=== PATIENT | female | born 1960 | race African-American/Black ===

== ENCOUNTER 2017-02-15 13:44 | Emergency (ER) | payer OTHER ==
[~2017-02-15 13:44] MED LIST: ALLERCLEAR10 MG PO; AMOXICILLIN PO; BACTRIM DS TABL1 TA1 PO; BENZONATATE PO; CELEXA PO; CLARITIN10 MG PO; COL PO; DARVOCET-N 1001 TAB PO; DEPAKOTE PO; DEPRESSION MED; DICYCLOMINE HCL20 MG PO; DOXYCYCLINE HY100 M3 PO; FIORICET 50-321 EACH PO; FIORICET W/CODE1 CAP PO; FLAGYL PO; FLEXERIL PO; FLEXERIL10 MG PO; FLONASE16 GM; IBUPROFEN800 MG; KEFLEX PO; KEFLEX500 MG PO; KETOPROFEN PO; LEVAQUIN PO; LISINOPRIL PO; LISINOPRIL-HCTZ1 T15 PO; LISINOPRIL-HCTZ1 T18 PO; LITHIUM PO; LORTAB 5/500 TA1 TA1 PO; MACROBID100 MG PO; MEDROL PO; METRONIDAZOLE PO; MICRO-K10 ME2 PO; MUSCLE RELAXERS; NERVE PILL; NORCO 5/325 TAB1 TAB PO; NORVASC; OMEPRAZOLE20 M1 PO; PARAFON FORTE500 MG PO; PHENERGAN PO; PHENERGAN PR; PRILOSEC PO; PROTONIX PO; SEROQUEL PO; TRAMADOL HCL50 M1 PO; TRAZODONE PO; VICODIN 5/500 T1 TAB PO; VOLTAREN75 MG PO; ZANTAC PO; ZESTRIL10 MG PO; ZYRTEC PO
== END 2017-02-15 15:13 | disposition home or self-care (01) ==
LOC: CED 13:44
DX: M25.562 Pain in left knee (principal); K21.9 Gastro-esophageal reflux disease without esophagitis; Z79.899 Other long term (current) drug therapy
CPT/HCPCS: 29530; 96372; 99283; J1885

== ENCOUNTER 2017-04-20 11:58 | Emergency (ER) | payer OTHER ==
[~2017-04-20] VITALS: Ht 160 cm; Wt 72.6 kg
== END 2017-04-20 14:28 | disposition home or self-care (01) ==
LOC: CED 11:58 → CFTX 11:58
DX: T63.301A Toxic effect of unspecified spider venom, accidental (unintentional), initial encounter (principal); L03.113 Cellulitis of right upper limb; L03.115 Cellulitis of right lower limb; I10 Essential (primary) hypertension; J44.9 Chronic obstructive pulmonary disease, unspecified; K21.9 Gastro-esophageal reflux disease without esophagitis
CPT/HCPCS: 99282; J1100